=== PATIENT | female | born 1955 | race Caucasian/White ===

== ENCOUNTER 2023-02-17 16:20 | Outpatient (REF) | payer MEDICARE, BC, SELFPAY ==
--- NOTE | 2023-02-17 08:45 | SKI_PTH ---
PATIENT: Desirae Benson LOC: [facility] U#:[id number] AGE/SX: 67/F ROOM: RE02/17/[address]: LEENA Hand : 1955 BED: DIS: 02/17/2023 SPEC #: [id number] RECD: 02/17/23 17:01 STATUS: EVE MACKENZIE #: [id number] ERICK: 02/17/23 08:[address]: Eduin Cole DEPT: Surgical Specimen RECD BY: Petrona Cisneros ENTERED: 02/17/23 17:02 SP TYPE: BRAN MOCK DR: Vivian Zimmer MD Tissues: 1 - SKIN BIOPSY(SHAVE/PUNCH) Procedures: SKIN LEVEL 4 Comments: [id number]
== END 2023-02-17 16:21 | disposition home or self-care (01) ==
LOC: LBN 16:20
PROVIDERS: PCP Physician Assistant; Visit Provider Physician Assistant
DX: L82.0 Inflamed seborrheic keratosis (principal)
CPT/HCPCS: 88305

== ENCOUNTER 2024-09-19 11:55 | Inpatient (IN) | payer MEDICARE, BC, SELFPAY ==
[2024-09-19] VITALS (7 sets, daily range): BP systolic 127–176; BP diastolic 80–106; PULSE 65–88; RESP 16–20; TEMP 36.9–37.4; O2SAT 96–99
--- NOTE | 2024-09-19 12:30 | RT.EKG_ITS ---
APPROVED REPORT Exam: Resting ECG Reason for Exam: weakness Patient Location: E HR:74 bpm ECG Measurements Heart Rate 74 AXIS NE 202 P 62 QRSd 93 QRS 18 QT 406 T 48 QTc 452 Conclusion Sinus rhythm...normal P axis, V-rate 60- 99 No Occlusion PA
[2024-09-19 13:00] LABS: Glucose Negative (Negative)
[2024-09-19 13:05] LABS: Abs Immature Grans 0.01 10^3/uL (0.0-0.06); HCT 43.3 % (36.0-46.0); HGB 14.3 g/dL (11.2-15.7); Immature Grans % 0.1 %; MCH 30.2 pg (27.0-33.0); MCHC 33.0 % (32.0-36.0); MCV 91 fL (80-95); MPV 8.7 fL (8.0-11.0); Platelet Count 261 10^3/uL (130-400); RBC 4.74 10^6/uL (3.93-5.22); RDW 13.1 % (11.7-14.6); RDW-SD 44.0 fL; WBC 7.94 10^3/uL (4.4-10.8)
[2024-09-19 13:12] LABS: C & S Indicated? No; RBC 0-2 HPF (0-2); WBC Negative HPF (0-5)
--- NOTE | 2024-09-19 13:22 | W.ED.GENAD ---
Discharge Plan Discharge Details Chief Complaint: Abd Prob Primary Care Provider: Farida,Local ED Provider: Petrona Andrade Home Meds and New Rx's Prescriptions: No Action cetirizine [Zyrtec] 1 tab PO DAILY epinephrine 1 syrg IM ONCE PRN cholecalciferol (vitamin D3) 1 tab PO DAILY aspirin 81 mg tablet,delayed release (DR/EC) 81 mg PO DAILY Slow-Mag 71.5 mg tablet,delayed release (DR/EC) 71.5 mg PO DAILY zolpidem [Ambien CR] 6.25 mg tablet,ext release multiphase 6.25 mg PO QHS atorvastatin 40 mg tablet 50 mg PO DAILY losartan 50 mg tablet 100 mg PO DAILY gabapentin 300 mg capsule 300 mg PO DAILY HPI General Date/Time Provider Initiated Documentation: 09/19/24 12:03. HPI Narrative: The patient is a 69-year-old female with a history of migraine headaches and hypertension, presenting with lower back pain radiating into her groin for the past 3 days. She was evaluated at an outside hospital yesterday, where a CT renal scan was performed, revealing no acute abnormalities. Laboratory tests conducted at her workplace were within normal limits. She sought medical attention due to persistent nausea and pain, which she now describes as being more severe on the right side compared to the left. She reports feeling lightheaded but is unable to consume fluids. She is not experiencing any chest pain or shortness of breath. Related Data Home Medications ?Medication ?Instructions ?Recorded ?Confirmed atorvastatin 40 mg tablet 50 mg PO DAILY 09/14/22 09/19/24 losartan 50 mg tablet 100 mg PO DAILY 09/14/22 09/19/24 aspirin 81 mg tablet,delayed 81 mg PO DAILY 10/28/22 09/19/24 release cetirizine 1 tab PO DAILY 10/28/22 09/19/24 cholecalciferol (vitamin D3) 1 tab PO DAILY 10/28/22 09/19/24 epinephrine 1 syrg IM ONCE PRN 10/28/22 09/19/24 magnesium chloride 71.5 mg 71.5 mg PO DAILY 10/28/22 09/19/24 (magnesium chloride) tablet,delayed release (Slow-Mag) gabapentin 300 mg capsule 300 mg PO DAILY 11/03/23 09/19/24 zolpidem 6.25 mg tablet,extended 6.25 mg PO QHS 11/03/23 09/19/24 release,multiphase (Ambien CR) Allergies Allergy/AdvReac Type Severity Reaction Status Date / Time atorvastatin Allergy Unknown Verified 09/19/24 12:41 lisinopril Allergy Unknown Verified 09/19/24 12:41 tree nut Allergy Unknown Verified 09/19/24 12:41 General Stated Complaint: Abd Prob DIMA: 3 Exam Narrative Exam Narrative: General Appearance: Alert and oriented. Vital signs: Within normal limits. HEENT: Within normal limits. Respiratory: Within normal limits. Gastrointestinal: Tenderness in bilateral flanks, right and left lower quadrants. No rebound or guarding. Skin: Warm and dry, no rash. Neurological: Normal. Course Vital Signs Vital signs: Vital Signs Temperature 37.3 C 09/19/24 12:01 Pulse 88 09/19/24 12:01 Respiratory Rate 20 09/19/24 12:01 Blood Pressure 172/106 H 09/19/24 12:01 Pulse Oximetry 99 09/19/24 12:01 Temperature 37.3 C 09/19/24 12:36 Temperature Source Oral 09/19/24 12:36 Pulse 88 09/19/24 12:36 Respiratory Rate 20 09/19/24 12:36 Blood Pressure 172/106 H 09/19/24 12:36 Blood Pressure Position Sitting 09/19/24 12:36 Pulse Oximetry 99 09/19/24 12:36 Oxygen Delivery Method Room Air 09/19/24 12:36 Oxygen Flow Rate 0 09/19/24 12:36 Pain Level 7 09/19/24 12:36 Lab/Test Results Lab/Test Results: Laboratory Tests Range/Units 09/19/24 09/19/24 12:36 12:45 WBC (4.4-10.8) 10^3/uL 7.94 RBC (3.93-5.22) 10^6/uL 4.74 Hgb (11.2-15.7) g/dL 14.3 Hct (36.0-46.0) % 43.3 MCV (80-95) fL 91 MCH (27.0-33.0) pg 30.2 MCHC (32.0-36.0) % 33.0 RDW (11.7-14.6) % 13.1 Plt Count (130-400) 10^3/uL 261 MPV (8.0-11.0) fL 8.7 Immature Gran % % 0.1 Neutrophils % % 71.0 Lymphocytes % % 19.3 Monocytes % % 6.9 Eosinophils % % 1.9 Basophils % % 0.8 Nucleated RBC % (0.0-0.3) % 0.0 Absolute Neutrophils (1.2-6.7) 10^3/uL 5.64 Absolute Lymphocytes (1.2-3.4) 10^3/uL 1.53 Absolute Monocytes (0.1-0.8) 10^3/uL 0.55 Absolute Eosinophils (0.0-0.7) 10^3/uL 0.15 Absolute Basophils (0.0-0.2) 10^3/uL 0.06 Urine Color (Yellow) Yellow Urine Clarity (Clear) Clear Urine pH (5-8) 5.5 Ur Specific [place] (1.005-1.025) 1.025 Urine Protein (Neg-Trace) mg/dL Negative Urine Ketones (Negative) mg/dL >=160 H Urine Blood (Negative) Trace-intact H Urine Nitrite (Negative) Negative Urine Bilirubin (Negative) Negative Urine Urobilinogen (Up to 0.2) mg/dL 0.2 Ur Leukocyte Esterase (Negative) Negative Urine RBC (0-2) HPF 0-2 Urine WBC (0-5) HPF Negative Ur Epithelial Cells (Negative) HPF Rare Urine Crystals (Negative) HPF Negative Urine Bacteria (Negative) HPF Negative Urine Casts (Negative) LPF Negative Urine Mucus (Negative) Negative Ur Culture Indicated? No Urine Glucose (Negative) mg/dL Negative Medical Decision Making Urinalysis: Ketonuria consistent with dehydration, no acute abnormalities. Bilirubin slightly elevated at 1.9 increased from 1.4 on prior CMP from [facility] CT renal: No acute abnormalities. Did spend approximately 5 minutes reviewing patient's CTs from [facility] Initial Assessment: 69-year-old female with migraine, hypertension, presenting with lower back pain radiating to groin for 3 days, persistent nausea, worse pain on right side. Differential Diagnosis: - Dehydration: ketonuria consistent with dehydration. - Renal pathology: CT renal normal, ultrasound pending. - Gastrointestinal issues: no rebound or guarding. ED Course: - Received fluids, antiemetics, Tylenol. - Ultrasound abdomen and pelvis pending. - Ordered morphine for pain management. - Ultrasound right upper quadrant negative for acute abnormality patient remains nauseous with abdominal pain I think she benefit from overnight observation fluids. Case discussed with Dr. Montoya agreeable to admission at this time Final Assessment: Patient presented with lower back pain radiating to groin, persistent nausea, and worse pain on right side. Received fluids, antiemetics, Tylenol, and morphine for pain management. Ultrasound abdomen and pelvis pending. Clinical Impression: - Dehydration - Renal pathology - Gastrointestinal issues MDM Components Evaluation: - Number of Differential Diagnoses or Management Options: Dehydration, Renal pathology, Gastrointestinal issues. - Amount and Complexity of Data Reviewed: CT renal, urinalysis, ultrasound abdomen and pelvis pending. - Risk of Complication and Morbidity or Mortality: Moderate risk due to persistent nausea, dehydration, and pain management. PFSH All Active Problems (Updated 02/17/23 @ 10:10 by LEENA Hand) Abnormal skin growth (Acute) Nevus (Acute) Screening for malignant neoplasm of skin (Acute) Medical History (Updated 02/17/23 @ 10:10 by LEENA Hand) Tubular adenoma of colon Primary insomnia GREGORIA (obstructive sleep apnea) Hyperlipidemia Cervical dysplasia Essential hypertension Nut allergy Environmental allergies Diverticulosis of large intestine Osteoarthritis of both knees Anxiety disorder Surgical History (Updated 09/14/22 @ 15:26 by Nakia Demarco RN) Hx of hysterectomy History of laparoscopic appendectomy Hx of total knee replacement Hx of colonoscopy Family History (Updated 09/14/22 @ 15:29 by Nakia Demarco RN) Father COPD (chronic obstructive pulmonary disease) Hyperlipidemia Hypertension Mother Hyperlipidemia Hypertension Stroke Paternal Grandmother Colon cancer Sister Hyperlipidemia Hypertension Brother Hyperlipidemia Social History (Updated 09/14/22 @ 15:28 by Nakia Demarco RN) Smoking/Tobacco Use Status: Never Smoking risk assessment performed?: Yes Alcohol Intake: current Alcohol Intake frequency: 0-2 drinks per day Drug use: Never Substance use type: does not use Do you feel safe at home: Yes Do you feel safe in your relationship?: Yes
[2024-09-19] MEDS: Omnipaque 350 MG/ML 100 ML BTL IJ (13:28)
[2024-09-19] MEDS: Normal Saline - Diluent 50 ML VIAL IJ (13:28)
[2024-09-19 13:31] LABS: ALT 30 U/L (14-59); AST 21 U/L (15-37); Albumin 4.4 g/dL (3.4-5.0); Alkaline Phosphatase 63 U/L (46-116); Anion Gap 10.9 mmol/L (3-11); BUN 13 mg/dL (7-18); Bilirubin, Total 1.9 mg/dL (0.2-1.0); CO2 26.1 mmol/L (21.0-32.0); Calcium 9.6 mg/dL (8.5-10.1); Chloride 102 mmol/L (98-107); Estimated GFR 92.98 (mL/min/1.73m2); Glucose 83 mg/dL (74-106); Potassium 4.1 mmol/L (3.5-5.1); Sodium 139 mmol/L (136-145); Total Protein 7.6 g/dL (6.4-8.2)
[2024-09-19 13:33] LABS: Lipase 23 U/L (<78); Magnesium 2.1 mg/dL (1.8-2.4); Troponin I 7 ng/L (<or=51)
[2024-09-19] MEDS: Ondansetron 4 MG/2 ML VIAL IVP (13:43)
[2024-09-19] MEDS: ACETAMINOPHEN 1,000 MG/100 ML BAG 400 MG IVPB (13:43)
[2024-09-19] MEDS: Normal Saline 1,000 ML 1000 ML IV ×2 (13:44→15:26)
--- NOTE | 2024-09-19 13:45 | DI.CT_ITS ---
Exam(s) CT ABDOMEN PELVIS W EXAM: CT ABDOMEN PELVIS W CLINICAL HISTORY: vomiting, bilateral flank pain (R>L. TECHNIQUE: Imaging Protocol: Axial computed tomography images with coronal and sagittal reformatted images were created and reviewed CONTRAST MATERIAL: Intravenous: Omnipaque 350 Contrast volume:75 ml Oral: no COMPARISON: No exams were available for comparison FINDINGS: ABDOMEN and PELVIS: Lung Bases: No acute findings. Liver: Normal density. No suspicious mass. Gallbladder and biliary tract: No radiodense calculus. No wall thickening or pericholecystic fluid. No biliary dilation. Pancreas: Normal density. No abnormal calcifications or inflammatory process. No evidence of mass. Spleen: Normal. Kidneys: Normal size, contour and axis. No radiodense stones. No obstructive uropathy. No suspicious masses seen. Adrenal glands: No masses seen. Vasculature: Abdominal aorta non-dilated. Soft tissues: Unremarkable. Bladder: No gross wall thickening. No calculi.No focal mass. Bowel: Prominent diverticulosis. No obstruction. No bowel wall thickening. Appendix normal. Peritoneal cavity: No ascites. No focal collection. No mesenteric inflammatory response. No free air. Bones: Advanced degenerative changes in the spine. Reproductive organs: Partial hysterectomy. Lymph nodes: No pathologically enlarged lymph nodes. IMPRESSION:: No acute abnormality in the abdomen or pelvis. Prominent diverticulosis. No evidence of diverticulitis. RADIATION DOSE DELIVERED: 508.91mGy.cm Total DLP DATA REPOSITORY: All CT scans at this facility are submitted to the National Radiology Data Registry (NRDR) Dose Index Registry (DIR) with the [employer] (ACR). RADIATION OPTIMIZATION: All CT scans at this facility use at least one of these dose optimization techniques: automated exposure control; mA and/or kV adjustment per patient size (includes targeted exams where dose is matched to clinical indication); or iterative reconstruction.
[2024-09-19 14:16] LABS: Troponin I 7 ng/L (<or=51)
--- NOTE | 2024-09-19 14:30 | DI.US_ITS ---
Exam(s) US ABDOMEN LIMITED EXAM: US ABDOMEN LIMITED CLINICAL HISTORY: RUQ, pain elevated bili TECHNIQUE: Ultrasound abdomen performed using standard protocol. COMPARISON: CT CT ABDOMEN PELVIS W from 09/19/2024 FINDINGS: LIVER: Normal size. Normalechogenicity. No focal liver lesions are seen.. GALLBLADDER: No evidence of cholelithiasis. No evidence of wall thickening. No pericholecystic fluid identified. WILLAMS'S SIGN: Negative. BILIARY SYSTEM: No intrahepatic or extrahepatic biliary ductal dilation. RIGHT KIDNEY: Normal size. No evidence of renal calculi. No evidence of hydronephrosis. No suspicious renal mass. Tiny cyst identified. PANCREAS: Normal where visualized. ABDOMINAL AORTA AND IVC: Visualized portions normal caliber. ASCITES: None seen. IMPRESSION: Normal sonographic appearance of the right upper quadrant. DATA REPOSITORY:
[2024-09-19] MEDS: Ketorolac 15 MG/ML VIAL 7.5 MG IVP (14:41)
[2024-09-19] MEDS: Prochlorperazine 10 MG/2 ML VIAL IVP (14:42)
--- NOTE | 2024-09-19 15:44 | W.PM.HP.N ---
Date of service: 09/19/24 Time of Service: 15:59 Assessment and Plan Assessment and plan (1) GREGORIA (obstructive sleep apnea): Assessment and plan: Will inquire about home CPAP and will order (2) Hyperlipidemia: Assessment and plan: Continue outpatient management if atorvastatin does not represent a true allergy; patient seems to have been on atorvastatin at home (3) Essential hypertension: Assessment and plan: Continue outpatient medicine regimen does not seem to be in [facility] (4) Anxiety disorder: Assessment and plan: Continue outpatient regimen (5) Abdominal pain: Status: Acute Assessment and plan: Abdominal and pelvis CT as well as ultrasound were negative for any acute findings Give scheduled ketorola and as needed IV morphine not effective Right lower back pain around iliac crest radiating to right lower quadrant?exacerbated by palpation - The patient was on prednisone which was stopped lately for left hip bursitis but no as no history of RA - ESR CRP Finish that note Will continue to monitor Flexiril trial (6) Nausea & vomiting: Status: Acute Assessment and plan: Continue with as needed antiemetic meds Clear liquid diet (7) Ketonuria: Status: Acute Assessment and plan: Could have been due to dehydration and poor oral intake in the setting of nausea vomiting patient complains of lightheadedness without hypotension LR at 125-hour no history of CHF (8) Elevated bilirubin: Status: Acute Assessment and plan: Bilirubin at 1.9 with normal LFTs and negative lipase No previous blood work to compare Will continue to monitor (9) On deep vein thrombosis (DVT) prophylaxis: Status: Acute Assessment and plan: On low molecular weight heparin Discussed with Dr. Michaels to [facility] History of Present Illness History of Present Illness Chief Complaint: Lower back, nausea vomiting lightheadedness Narrative: This 69 years old female patient with past medical history of migraine headaches,hyperlipidemia, GREGORIA, hypertension, hysterectomy, appendectomy presented to the ED for evaluation of presenting with lower back pain radiating into her right groin> left groin for the past 3 days with ongoing lightheadedness, nausea and inability to consume oral fluid. Workup in the ED was most likely unremarkable and ACS negative except for total bilirubin at 1.9 and ketonuria consistent with dehydration versus poor nutritional intake likely contribute. CT of the abdomen and pelvis was unremarkable ultrasound of the right upper quadrant . In the ED the patient was treated with IV antiemetic IV fluid and IV morphine. The patient will be admitted to the medical surgical floor by the hospitalist team for uncontrolled pain, intractable nausea/vomiting. Full CODE STATUS confirmed. Patient denied fevers, chills, chest pain, dysuria or diarrhea. Patient reported pain starting on the left lower back radiating to the lower abdomen then complete migration of pain to the right side from her lower right back to her lower abdomen over the past 3 to 4 days, last bowel movement Monday, not passing flatus, nausea, vomiting. Review of Systems All systems reviewed & are unremarkable except as noted in HPI and below PFSH All Active Problems (Updated 09/19/24 @ 16:09 by Teresa Rodriguez APRN) On deep vein thrombosis (DVT) prophylaxis (Acute) Elevated bilirubin (Acute) Ketonuria (Acute) Nausea & vomiting (Acute) Abdominal pain (Acute) Abnormal skin growth (Acute) Nevus (Acute) Screening for malignant neoplasm of skin (Acute) Medical History (Updated 09/19/24 @ 16:09 by Teresa Rdoriguez APRN) Tubular adenoma of colon Primary insomnia GREGORIA (obstructive sleep apnea) Hyperlipidemia Cervical dysplasia Essential hypertension Nut allergy Environmental allergies Diverticulosis of large intestine Osteoarthritis of both knees Anxiety disorder Surgical History (Updated 09/14/22 @ 15:26 by Nakia Demarco RN) Hx of hysterectomy History of laparoscopic appendectomy Hx of total knee replacement Hx of colonoscopy Family History (Updated 09/14/22 @ 15:29 by Nakia Demarco RN) Father COPD (chronic obstructive pulmonary disease) Hyperlipidemia Hypertension Mother Hyperlipidemia Hypertension Stroke Paternal Grandmother Colon cancer Sister Hyperlipidemia Hypertension Brother Hyperlipidemia Social History (Updated 09/14/22 @ 15:28 by Nakia Demarco RN) Smoking/Tobacco Use Status: Never Smoking risk assessment performed?: Yes Alcohol Intake: current Alcohol Intake frequency: 0-2 drinks per day Drug use: Never Substance use type: does not use Do you feel safe at home: Yes Do you feel safe in your relationship?: Yes Meds Allergies and Home Medications Allergies Allergy/AdvReac Type Severity Reaction Status Date / Time atorvastatin Allergy Unknown Verified 09/19/24 12:41 lisinopril Allergy Unknown Verified 09/19/24 12:41 tree nut Allergy Unknown Verified 09/19/24 12:41 Home Medications ?Medication ?Instructions ?Recorded ?Confirmed ?Type atorvastatin 40 mg tablet 50 mg PO DAILY 09/14/22 09/19/24 History aspirin 81 mg tablet,delayed 81 mg PO DAILY 10/28/22 09/19/24 History release cetirizine 1 tab PO DAILY 10/28/22 09/19/24 History cholecalciferol (vitamin D3) 1 tab PO DAILY 10/28/22 09/19/24 History epinephrine 1 syrg IM ONCE PRN 10/28/22 09/19/24 History magnesium chloride 71.5 mg 71.5 mg PO DAILY 10/28/22 09/19/24 History (magnesium chloride) tablet,delayed release (Slow-Mag) gabapentin 300 mg capsule 300 mg PO DAILY 11/03/23 09/19/24 History zolpidem 6.25 mg tablet,extended 6.25 mg PO QHS 11/03/23 09/19/24 History release,multiphase (Ambien CR) atorvastatin 10 mg tablet 10 mg PO DAILY 09/19/24 09/19/24 History losartan 100 mg tablet 100 mg PO DAILY 09/19/24 09/19/24 History Exam Narrative Exam Narrative: Alert oriented x 3 no focal neurodeficit, clear lungs unlabored breathing, S1-S2 no murmur, abdomen is tender to right lower quadrant nondistended nonacute Negative CVA tenderness moves all 4 extremities, Results Labs 09/19/24 12:45 09/19/24 12:45 Labs: Laboratory Results - last 24 hr 09/19/24 09/19/24 09/19/24 12:36 12:45 13:44 WBC 7.94 RBC 4.74 Hgb 14.3 Hct 43.3 MCV 91 MCH 30.2 MCHC 33.0 RDW 13.1 Plt Count 261 MPV 8.7 Immature Gran % 0.1 Neutrophils % 71.0 Lymphocytes % 19.3 Monocytes % 6.9 Eosinophils % 1.9 Basophils % 0.8 Nucleated RBC % 0.0 Absolute Neutrophils 5.64 Absolute Lymphocytes 1.53 Absolute Monocytes 0.55 Absolute Eosinophils 0.15 Absolute Basophils 0.06 Sodium 139 Potassium 4.1 Chloride 102 Carbon Dioxide 26.1 Anion Gap 10.9 BUN 13 Creatinine 0.7 Est GFR (CKD-EPI 2020) 92.98 Glucose 83 Calcium 9.6 Magnesium 2.1 Total Bilirubin 1.9 H AST 21 ALT 30 Alkaline Phosphatase 63 Troponin I 7 7 Total Protein 7.6 Albumin 4.4 Lipase 23 Urine Color Yellow Urine Clarity Clear Urine pH 5.5 Ur Specific [place] 1.025 Urine Protein Negative Urine Ketones >=160 H Urine Blood Trace-intact H Urine Nitrite Negative Urine Bilirubin Negative Urine Urobilinogen 0.2 Ur Leukocyte Esterase Negative Urine RBC 0-2 Urine WBC Negative Ur Epithelial Cells Rare Urine Crystals Negative Urine Bacteria Negative Urine Casts Negative Urine Mucus Negative Ur Culture Indicated? No Urine Glucose Negative Last Vital Signs Temp 37.4 C 09/19/24 13:29 Pulse 65 09/19/24 13:29 Resp 20 09/19/24 12:36 BP 176/85 H 09/19/24 13:29 Pulse Ox 99 09/19/24 13:34 Time Spent Time spent with Patient: >75 minutes Time was spent: preparing to see the patient(eg.review tests), obtaining and/or reviewing separately otained hiistory, ordering medications,tests, procedures, referring, communicating with other health dog daycare provider, indepentently interpreting results, counseling the patient and care coordination
[2024-09-19] MEDS: MORPHine 4 MG/ML SYR IVP (15:52)
--- NOTE | 2024-09-19 16:45 | W.PC.ACHO ---
Registration Status: REG ER Primary Language: Preferred Language: ED Information & Data Chief Complaint Abd Prob 09/19/24 13:24 Triage Note Pt arrives to ED c/o LBP 09/19/24 12:01 which radiates into her abd x 3 days. Pt was seen yesterday in the ED at [facility] in [place]. Pt also endorses nausea. Vomiting on Monday but not since then. Negative CT at [facility]. Denies CP and SOB. Last BM x 2 days ago - normal per pt. Hx of appendectomy and total hysterectomy Medical / Surgical History (Last Updated 09/14/22 @ 15:26 by Nakia Demarco RN) Tubular adenoma of colon Primary insomnia GREGORIA (obstructive sleep apnea) Hyperlipidemia Cervical dysplasia Essential hypertension Nut allergy Environmental allergies Diverticulosis of large intestine Osteoarthritis of both knees Anxiety disorder (Last Updated 09/14/22 @ 15:26 by Nakia Demarco RN) Hx of hysterectomy History of laparoscopic appendectomy Hx of total knee replacement Hx of colonoscopy Most Recent Vital Signs Temperature 37.4 C 09/19/24 13:29 Temperature Source Oral 09/19/24 13:29 Pulse 86 09/19/24 16:17 Pulse Rhythm Regular 09/19/24 13:29 Respiratory Rate 16 09/19/24 16:17 Blood Pressure 127/84 09/19/24 16:17 Blood Pressure Mean 98 09/19/24 16:17 Blood Pressure Position Sitting 09/19/24 16:17 Pulse Oximetry 98 09/19/24 16:17 Oxygen Delivery Method Room Air 09/19/24 12:36 Oxygen Flow Rate 0 09/19/24 12:36 Pain Level 5 09/19/24 13:29 Allergies atorvastatin Allergy (Verified 09/19/24 12:41) Unknown lisinopril Allergy (Verified 09/19/24 12:41) Unknown tree nut Allergy (Verified 09/19/24 12:41) Unknown Precautions Isolation Standard precaution 09/19/24 12:11 IV IV Catheter Type [Right Saline Lock Antecubital] IV Catheter Gauge [Right 20 Antecubital] Diet Orders Category Date Time Status Heart Healthy Eating [DIET] Nutrition 09/19/24 Lunch Active Diagnostics 09/19/24 09/19/24 09/19/24 Range/Units 13:44 12:45 12:36 WBC 7.94 (4.4-10.8) 10^3/uL RBC 4.74 (3.93-5.22) 10^6/uL Hgb 14.3 (11.2-15.7) g/dL Hct 43.3 (36.0-46.0) % MCV 91 (80-95) fL MCH 30.2 (27.0-33.0) pg MCHC 33.0 (32.0-36.0) % RDW 13.1 (11.7-14.6) % Plt Count 261 (130-400) 10^3/uL MPV 8.7 (8.0-11.0) fL Immature Gran % 0.1 % Neutrophils % 71.0 % Lymphocytes % 19.3 % Monocytes % 6.9 % Eosinophils % 1.9 % Basophils % 0.8 % Nucleated RBC % 0.0 (0.0-0.3) % Absolute Neutrophils 5.64 (1.2-6.7) 10^3/uL Absolute Lymphocytes 1.53 (1.2-3.4) 10^3/uL Absolute Monocytes 0.55 (0.1-0.8) 10^3/uL Absolute Eosinophils 0.15 (0.0-0.7) 10^3/uL Absolute Basophils 0.06 (0.0-0.2) 10^3/uL Sodium 139 (136-145) mmol/L Potassium 4.1 (3.5-5.1) mmol/L Chloride 102 (98-107) mmol/L Carbon Dioxide 26.1 (21.0-32.0) mmol/L Anion Gap 10.9 (3-11) mmol/L BUN 13 (7-18) mg/dL Creatinine 0.7 (0.55-1.02) mg/dL Est GFR (CKD-EPI 2020) 92.98 (mL/min/1.73m2) Glucose 83 (74-106) mg/dL Calcium 9.6 (8.5-10.1) mg/dL Magnesium 2.1 (1.8-2.4) mg/dL Total Bilirubin 1.9 H (0.2-1.0) mg/dL AST 21 (15-37) U/L ALT 30 (14-59) U/L Alkaline Phosphatase 63 (46-116) U/L Troponin I 7 7 (<or=51) ng/L Total Protein 7.6 (6.4-8.2) g/dL Albumin 4.4 (3.4-5.0) g/dL Lipase 23 (<78) U/L Urine Color Yellow (Yellow) Urine Clarity Clear (Clear) Urine pH 5.5 (5-8) Ur Specific [place] 1.025 (1.005-1.025) Urine Protein Negative (Neg-Trace) mg/dL Urine Ketones >=160 H (Negative) mg/dL Urine Blood Trace-intact H (Negative) Urine Nitrite Negative (Negative) Urine Bilirubin Negative (Negative) Urine Urobilinogen 0.2 (Up to 0.2) mg/dL Ur Leukocyte Esterase Negative (Negative) Urine RBC 0-2 (0-2) HPF Urine WBC Negative (0-5) HPF Ur Epithelial Cells Rare (Negative) HPF Urine Crystals Negative (Negative) HPF Urine Bacteria Negative (Negative) HPF Urine Casts Negative (Negative) LPF Urine Mucus Negative (Negative) Ur Culture Indicated? No Urine Glucose Negative (Negative) mg/dL Intake and Output - 24 Hour Total 09/19/24 11:55 thru 09/19/24 15:26 Intake Total 1100 Balance 1100 Weight 77.564 kg Intake: IV 1100 Falls Risk Assessment History of Falls No History 09/19/24 12:36 Contributing Factors No Factors 09/19/24 12:36 Ambulatory Aids Independent 09/19/24 12:36 Tubes/Lines W/no contributing factors 09/19/24 12:36 Gait Evaluation No gait disturbance 09/19/24 12:36 Cognition No cognitive impairment 09/19/24 12:36 Fall Total Score 10 09/19/24 12:36 Level of Risk Standard/Low Risk 09/19/24 12:36 Problems (Last Updated 09/14/22 @ 15:26 by Nakia Demarco RN) On deep vein thrombosis (DVT) prophylaxis (Acute) Elevated bilirubin (Acute) Ketonuria (Acute) Nausea & vomiting (Acute) Abdominal pain (Acute) v v v v v v v v v Sending and/or Receiving Nurses: Please use comment section below to note any information pertinent to the patient hand-off not included above. Information / Comments: This nurse received report from ED patient arrived with nausea for three days, low back pain in the right side, transferred to [facility] for observation. Report received from: Concha SINGH ED
[2024-09-19] MEDS: Lactated Ringers 1,000 ML 125 ML IV (17:39)
[2024-09-19] MEDS: Pantoprazole 40 MG VIAL IVP (17:45)
--- NOTE | 2024-09-19 18:14 | RESPIRATORY ---
Spoke with patient about her GREGORIA diagnosis and she advised she has a home CPAP unit but does not use it (DME: [employer]). She said she recently had a f/u appt with the sleep clinic at [facility] and they advised her that since her GREGORIA is mild she could choose whether to wear the machine or not.
[2024-09-19] MEDS: Ketorolac 15 MG/ML VIAL IVP (19:48)
[2024-09-19] MEDS: Cyclobenzaprine 10 MG TAB PO (19:49)
--- NOTE | 2024-09-20 | DI.RAD_ITS ---
Exam(s) XR LUMBAR SPINE COMPLETE EXAM: XR LUMBAR SPINE COMPLETE CLINICAL HISTORY: lumbar pain. TECHNIQUE: 2D digital imaging was performed of the lumbar spine. Five images were obtained. AP, lateral, right oblique, left oblique and L5-S1 spot views were obtained. COMPARISON: No exams were available for comparison FINDINGS: BONES: No fracture or destructive lesion. There are endplate osteophytes at multiple levels of the lumbar spine. Syndesmophytes are present. There are degenerative changes of the facets throughout the lumbar spine. DISKS: There is disc space narrowing at all levels of the lumbar spine. Vacuum discs are seen from L3-4 through L5-S1. ALIGNMENT: There is a very mild right convex lumbar scoliosis. No spondylolysis or spondylolisthesis. SOFT TISSUE: Atherosclerotic calcification is present. IMPRESSION: 1. There is no acute fracture or subluxation. 2. Moderately severe degenerative changes are seen in the lumbar spine. DATA REPOSITORY: RADIATION DOSE DELIVERED:
--- NOTE | 2024-09-20 | DI.RAD_ITS ---
Exam(s) XR HIP RT COMPLETE AP PELVIS EXAM: XR HIP RT COMPLETE AP PELVIS CLINICAL HISTORY: pain. TECHNIQUE: 2D digital imaging was performed of the right hip. Two images were obtained. AP pelvis and lateral right hip views were obtained. COMPARISON: No exams were available for comparison FINDINGS: BONES: No acute fracture is present. No bony destructive lesion is seen. JOINTS: No dislocation present. There are mild degenerative changes seen in the hips. The sacroiliac joints and symphysis pubis are intact. SOFT TISSUE: Normal. IMPRESSION: No acute abnormalities identified. DATA REPOSITORY: RADIATION DOSE DELIVERED:
[2024-09-20] MEDS: MORPHine 10 MG/ML VIAL 2 MG IVP ×2 (00:19→08:29)
[2024-09-20] MEDS: Ketorolac 15 MG/ML VIAL IVP ×3 (01:52→13:13)
[2024-09-20] MEDS: Lactated Ringers 1,000 ML 125 ML IV ×2 (01:52→10:01)
[2024-09-20 06:32] LABS: ESR 5 mm/hr (0-30)
[2024-09-20 06:33] LABS: Abs Immature Grans 0.01 10^3/uL (0.0-0.06); HCT 36.7 % (36.0-46.0); HGB 12.1 g/dL (11.2-15.7); Immature Grans % 0.1 %; MCH 30.2 pg (27.0-33.0); MCHC 33.0 % (32.0-36.0); MCV 92 fL (80-95); MPV 9.2 fL (8.0-11.0); Platelet Count 214 10^3/uL (130-400); RBC 4.01 10^6/uL (3.93-5.22); RDW 13.3 % (11.7-14.6); RDW-SD 45.0 fL; WBC 7.27 10^3/uL (4.4-10.8)
[2024-09-20 07:14] LABS: ALT 21 U/L (14-59); AST 25 U/L (15-37); Albumin 3.3 g/dL (3.4-5.0); Alkaline Phosphatase 48 U/L (46-116); Anion Gap 12.7 mmol/L (3-11); BUN 9 mg/dL (7-18); Bilirubin, Total 1.3 mg/dL (0.2-1.0); CO2 21.3 mmol/L (21.0-32.0); Calcium 8.6 mg/dL (8.5-10.1); Chloride 106 mmol/L (98-107); Estimated GFR 100.84 (mL/min/1.73m2); Glucose 68 mg/dL (74-106); Potassium 3.7 mmol/L (3.5-5.1); Sodium 140 mmol/L (136-145); Total Protein 6.0 g/dL (6.4-8.2)
[2024-09-20 07:27] LABS: C-Reactive Protein < 0.50 mg/dL (<or=0.5)
[2024-09-20 07:29] VITALS: BP 174/81; PULSE 92; RESP 14; TEMP 35.8; O2SAT 99
[2024-09-20] MEDS: Pantoprazole 40 MG VIAL IVP (08:08)
[2024-09-20] MEDS: Aspirin E.C. 81 MG TABEC PO (08:33)
[2024-09-20] MEDS: Losartan 50 MG TAB 100 MG PO (08:33)
[2024-09-20] MEDS: Gabapentin 300 MG CAP PO (08:33)
--- NOTE | 2024-09-20 09:00 | PDOC.CMIN ---
Date of service: 09/20/24 Time of Service: 09:00 Care Management Initial Assmt Initial Assessment Reason for Hospitalization: back pain Functional Status/Living Situation Patient Presentation: Desirae was sitting up in bed when CM met with her. She had just worked with PT and stated that it really helped a lot. Desirae was admitted with nausea and vomiting as well as back pain. She stated that the medication for nausea has been effective and that her pain is much improved. She is hoping to be discharged later today. Desirae lives in a single family home in [place] with her Elan. They have 2 children; their son lives in [place], [place] and their daughter lives in [place]. 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 She is independnet at baseline and does not receive any community services. Town of Residence: [place] Resides with: Spouse ( Elan) Significant Other/Family: Local (daughter [facility], son in [place]) Employment Status: Retired Instrumental Activities of Daily Living (ADLs): Independent Medications Medication Management: No Issues/Barriers identified Physical Functioning/Mobility Assistive Device: none Advance Directives Advance Directives: Do you have an Advance Directive: AD On File at [facility]: N 09/19/24, 12:21 Date Asked 09/19/24 09/19/24, 12:21 AD Date Reviewed COLST On File at [facility] COLST Date Scanned Code Status Resuscitation Status Full Code Portal Pt does not currently have a portal and education provided: Yes Insurance Coverage/Financial Issues Insurance: Medicare BC/ Care Team Visit Care Team Role Provider Type Teresa Rodriguez APRN MD [facility] STAFF PHYSICIAN [facility] No Primary Care Provider NON-[facility] STAFF PHYSICIAN LEENA Agosto Emergency Provider [facility] [employer] Huseyin Montoya MD Admit Provider [facility] STAFF PHYSICIAN Attending Provider Discharge Potential Discharge Needs: PCP F/U Appt Anticipated Barriers to Discharge: None Identified Patient/Family Education Needs: Review discharge instructions, discuss Ask Me Three Transportation: Private vehicle Plan: Anticipate Desirae will be discharged home with no new services. She will follow up with her PCP and plan of care and transport with family. CM will follow and continue to support discharge planning. Social Determinants of Health Screening Social Determinants of health last assessed in clinic: 09/20/24 Will the Patient Participate in the Screening?: Yes Do you worry about having a steady place to live?: yes What is your living situation today?: I have housing today, but am worried about losing it Problems where you live: no known problems In the past 12 months, have you had to go without electric, gas, oil or water in your home?: no 1. Within the past 12 months, we worried whether our food would run out before we got money to buy more.: Never true 2. Within the past 12 months, the food we bought just didn't last and we didn't have money to get more.: Never true Has lack of transportation kept you from medical appointments or from doing things needed for daily living?: no Has anyone in your life made you feel unsafe or unsupported?: no How hard is it for you to pay for the very basics like food, housing, medical care, and heating? Would you say it is:: Not hard at all Do you want help finding or keeping work or a job?: I do not need or want help If for any reason you need help with day-to-day activities such as bathing, preparing meals, shopping, managing finances, etc., do you get the help you need?: I don?t need any help How often do you feel lonely or isolated from those around you?: Never Do you speak a language other than Bengali at home?: No Does the patient want assistance with any of the above?: No Health Related Social Needs Health related social needs: housing instability, housed, with risk of homelessness (Z59.811) Health related social needs details: no needs PFSH All Active Problems (Updated 09/19/24 @ 16:09 by Teresa Rodriguez APRN) On deep vein thrombosis (DVT) prophylaxis (Acute) Elevated bilirubin (Acute) Ketonuria (Acute) Nausea & vomiting (Acute) Abdominal pain (Acute) Abnormal skin growth (Acute) Nevus (Acute) Screening for malignant neoplasm of skin (Acute) Medical History (Updated 09/19/24 @ 16:09 by Teresa Rodriguez APRN) Tubular adenoma of colon Primary insomnia GREGORIA (obstructive sleep apnea) Hyperlipidemia Cervical dysplasia Essential hypertension Nut allergy Environmental allergies Diverticulosis of large intestine Osteoarthritis of both knees Anxiety disorder Surgical History (Updated 09/14/22 @ 15:26 by Nakia Demarco RN) Hx of hysterectomy History of laparoscopic appendectomy Hx of total knee replacement Hx of colonoscopy Family History (Updated 09/14/22 @ 15:29 by Nakia Demarco RN) Father COPD (chronic obstructive pulmonary disease) Hyperlipidemia Hypertension Mother Hyperlipidemia Hypertension Stroke Paternal Grandmother Colon cancer Sister Hyperlipidemia Hypertension Brother Hyperlipidemia Social History (Updated 09/14/22 @ 15:28 by Nakia Demarco RN) Smoking/Tobacco Use Status: Never Smoking risk assessment performed?: Yes Alcohol Intake: current Alcohol Intake frequency: 0-2 drinks per day Drug use: Never Substance use type: does not use Do you feel safe at home: Yes Do you feel safe in your relationship?: Yes
[2024-09-20] MEDS: Cyclobenzaprine 10 MG TAB PO ×2 (13:14→20:18)
[2024-09-20] MEDS: Magnesium Citrate 300 ML BTL 150 ML PO (13:14)
[2024-09-20] MEDS: Metoclopramide 10 MG/2 ML VIAL IVP (13:14)
[2024-09-20 13:29] VITALS: BP 179/82
--- NOTE | 2024-09-20 13:30 | IN_ITS ---
PT Notes Visit Reasons: Nausea, vomiting Physical Therapy Inpatient Initial Evaluation Date: 09/20/2024 Referring Doctor: Teresa Rodriguez NP PT Orders: PT CONSULT: Safety Consult for D/C. Eval for Assistive Device Precautions: Fall. Standard. Activity as tolerated. Patient Profile/Admitting Diagnosis: Desirae is a 69 year-old female admitted for assessment of abdominal pain, low back pain, lightheadedness, nausea, and vomiting. Renal CT [facility] at [facility] did not show any acute abnormality. Testing here also did not show any abnormality of the R UAQ and the abdomen and pelvis. Low back pain preceded the weed wacking activity that worsened symptoms on Monday. 09/20/2024 Abdominal US Impression: Normal sonographic appearance of the right upper quadrant. 09/20/[address] Impiression: No acute abnormality in the abdomen or pelvis. Prominent diverticulosis. No evidence of diverticulitis. PMHX: All Active Problems (Updated 09/19/24 @ 16:09 by Teresa Rodriguez APRN) On deep vein thrombosis (DVT) prophylaxis (Acute) Elevated bilirubin (Acute) Ketonuria (Acute) Nausea & vomiting (Acute) Abdominal pain (Acute) Abnormal skin growth (Acute) Nevus (Acute) Screening for malignant neoplasm of skin (Acute) Medical History (Updated 09/19/24 @ 16:09 by Teresa Rodriguez APRN) Tubular adenoma of colon Primary insomnia GREGORIA (obstructive sleep apnea) Hyperlipidemia Cervical dysplasia Essential hypertension Nut allergy Environmental allergies Diverticulosis of large intestine Osteoarthritis of both knees Anxiety disorder Surgical History (Updated 09/14/22 @ 15:26 by Nakia Demarco RN) Hx of hysterectomy History of laparoscopic appendectomy Hx of total knee replacement Hx of colonoscopy Social History/Home Situation: Lives with in a private home without steps to enter. Equipment Owned/DME: Back brace Subjective: On Monday, and patient stated that her back was starting to act out. She weed wacked Monday morning for 15 minutes each time for a total of over 4 hours using a 16-17 lb (according to ) weed stevenson. Patient stated that she made sure she wore her back brace while weed wacking as her back was giving her a problem already. said that he told her not to worry about the weeds but she wanted the chore done and so she did. A new wave of pain from both the low back side was radiating to both the lower abdomen area and the groin area that got worse later in the day Monday which prompted patient and to go to [facility] on Monday where renal CT scan was done but did not show any acute abnormality. Vomiting started Monday night. She added that she has not been hydrating well these past few days, Objective: General Observation: Pleasant female resting in bed and talking with ed PT came in. IV through R UE. Mental Status: Alert and oriented as to person, place, time, and purpose. Able to pay attention, focus, and respond appropriately. Pain: Minimal pain now localized along the R lumbar parapsinals, very little reported through the groin areas on B sides ROM: Right Upper Extremity: Shoulder Flexion WFL. Shoulder abduction WFL. Elbow flexion WFL. Wrist flexion WFL. Functional opening and closing of hand WFL. Left Upper Extremity: Shoulder Flexion WFL. Shoulder abduction WFL. Elbow flexion WFL. Wrist flexion WFL. Functional opening and closing of hand WFL. Right Lower Extremity: Hip flexion WFL. Hip abduction WFL. Knee flexion WFL. Ankle dorsiflexion WFL. Ankle plantarflexion WFL. Left Lower Extremity: Hip flexion WFL. Hip abduction WFL. Knee flexion WFL. Ankle dorsiflexion WFL. Ankle plantarflexion WFL. Strength: Right Upper Extremity: Shoulder flexors 4/5. Shoulder abductors 4/5. Elbow flexors 5/5. Elbow extensors 5/5. Equipment Operation Instructor strong. Left Upper Extremity: Shoulder flexors 4/5. Shoulder abductors 4/5. Elbow flexors 5/5. Elbow extensors 5/5. Equipment Operation Instructor strong. Right Lower Extremity: Hip flexors 4/5. Hip abductors 4/5. Knee flexors 5/5. Knee extensors 5/5. Ankle dorsiflexors 5/5. Ankle plantarflexors 5/5. Left Lower Extremity: Hip flexors 4/5. Hip abductors 4/5. Knee flexors 5/5. Knee extensors 5/5. Ankle dorsiflexors 5/5. Ankle plantarflexors 5/5. Bed Mobility/Transfers: Rolling independent Supine to sit independent Sit to supine independent Sit to stand independent Stand to sit independent Bed to reclining chair independent Reclining chair to bed independent Gait: 600 feet without an assistive device. No gait abnormality noted. No path deviation. No loss of balance. Verbalized that she could feel some aching in the R lower back area. Balance: Static Sitting: Normal Dynamic Sitting: Caitlyn Static Standing: Normal Dynamic Standing: Good Special Tests: Mobility Limitations Standardized Measure [facility] AM-PAC 6 clicks Basic Mobility Inpatient Short Form: Raw Score: 24 CMS Score: 0% deficit Informed Consent/Education: Patient was instructed in purpose of PT consult and plan of care. Agreeable to proceed with established PT POC to achieve personal goals. MANUAL THERAPY: STM to R lumbar paraspinals x 5 minutes with good response. THERCarmela EX: Provided guidance and training in safe and correct performance of HEP as follows: Access Code: [email or web address] URL: [email or web address] Date: 09/20/2024 Prepared by: Nicki Yusuf Exercises - Supine Posterior Pelvic Tilt with Knee Rocks - 1 x daily - 7 x weekly - 1 sets - 10 reps - 5 hold - Supine Posterior Pelvic Tilt - 1 x daily - 7 x weekly - 1 sets - 10 reps - 5 hold - Alternating supine single knee to chest - 1 x daily - 7 x weekly - 1 sets - 10 reps - 5 hold - Supine Bridge - 1 x daily - 7 x weekly - 1 sets - 10 reps - 5 hold - Supine Quadricep Sets - 1 x daily - 7 x weekly - 1 sets - 10 reps - 5 hold - Supine Gluteal Sets - 1 x daily - 7 x weekly - 1 sets - 10 reps - 5 hold - ARY/Figure 4 exercises with gentle active push down of knee - 1 x daily - 7 x weekly - 1 sets - 10 reps - 5 hold Assessment: Tight R lumbar paraspinals and bilateral piriformis alonw with L trochanteric bursitis recurrence aggravated by lifting 16-lb weed stevenson 4 days ago complicated by dehydration, and ketonuria, increased bilirubin. Patient was able to tolerate up to 600 feet of level surface ambulation without an assistive device with report of increased R lower lumbar area guarding/stiffness. Patient was provided with STM to sprained R lumbar pararspinals longissimus thoracis and iliocostalis lumborum with patient in L side lying. Patient was then trained with supine level HEP to further minimize symptoms. Patient presents with clinical signs and symptoms consistent with current/admitting diagnoses that have resulted to mobility limitations, gait instability, generalized weakness, and overall ADL decline as demonstrated by the following impairment level findings: 1. Decreased strength to R lumbar paraspinals 2. Impaired activity tolerance 3. Sprain to R lumbar paraspinals Impairments are contributing to the following functional limitations: 1. Increased completion time for mobility ADL performance 2. Increased risk for falls 3. Impaired ability to participate in instrumental ADLs: gardening Patient is assessed as a 27595 low complexity based on the following: History: 69-year-old female with past medical history as indicated above Examination: As above Presentation: Stable Decision Makin low complexity Goals: Goals X1 week 1. Independent gait on level surface without AD for 1000 feet without report of pain 2. Independent with home exercise program 3. Normal static and dynamic standing balance/tolerance Plan of Care/Treatment Plan: 1x/day, 7 days/week x 1 week. Plan of care has been reviewed with the [facility] providing the service under Physical Therapy direction. Initiate Physical Therapy intervention for pain management as needed, strengthening, bed mobility, transfers, gait, stairs, balance training, and use of assistive device. DISCHARGE RECOMMENDATIONS: OP PT for continued back rehab TREATMENT CODE/TIME: 54531 x 20 minutes for unit, 77762 x 15 minutes for 1 unit, 61795 x 10 minutes for 1 unit (13:30-14:15). Thank you for the opportunity to participate in the care of this patient. Nicki Yusuf PT, DPT, CLT [facility] [place], [place]
[2024-09-20] MEDS: Ibuprofen 400 MG TAB PO (16:38)
--- NOTE | 2024-09-20 17:30 | W.PM.PROGNOT ---
Date of Service Date of service: 09/20/24 Time of Service: 11:00 Assessment and Plan Assessment and plan (1) GREGORIA (obstructive sleep apnea): Assessment and plan: Will inquire about home CPAP and will order (2) Hyperlipidemia: Assessment and plan: Continue outpatient management if atorvastatin does not represent a true allergy; patient seems to have been on atorvastatin at home (3) Essential hypertension: Assessment and plan: Continue outpatient medicine regimen does not seem to be in ELIZABETH but adjust as needed NSAID as needed now due to SBP 150-170 might also be due to pain (4) Anxiety disorder: Assessment and plan: Continue outpatient regimen (5) Abdominal pain: Status: Acute Assessment and plan: Abdominal and pelvis CT as well as ultrasound were negative for any acute findings but advanced degenerative spine changes seen Scheduled ketorolac transition to as needed oral NSAIDs and as needed morphine?will favor the administration of oral medicine first for anticipated discharge on oral pain meds Right lower back pain around iliac crest radiating to right lower quadrant?exacerbated by palpation - The patient was on prednisone which was stopped lately for left hip bursitis but no as no history of RA - ESR CRP Finish that note Will continue to monitor Flexiril trial ongoing?as patient might have overexerted herself: Please review physical therapy notes PT recommendation for outpatient PT for continued back rehab Pain appears to be from groin and lumbar region? 2 inc. paraspinal right that has migrated from initially left-sided pain Lumbar spine and pelvic x-ray in the setting of reported bursitis treated with Oral prednisone taper recently (6) Nausea & vomiting: Status: Acute Assessment and plan: Continue with as needed antiemetic meds Clear liquid diet advance as tolerated (7) Ketonuria: Status: Acute Assessment and plan: Could have been due to dehydration and poor oral intake in the setting of nausea vomiting patient complains of lightheadedness without hypotension LR at 125-hour discontinued as patient is able to tolerate oral fluid (8) Elevated bilirubin: Status: Acute Assessment and plan: Improving bilirubin with normal LFTs and negative lipase No previous blood work to compare on arrival but records from [facility] obtain bilirubin was 1.4 on 09/18 Will continue to monitor (9) Constipation: Status: Acute Assessment and plan: no bowel movement since Monday?positive stool burden as per CT mag citrate x 1 given effective Colace scheduled (10) On deep vein thrombosis (DVT) prophylaxis: Status: Acute Assessment and plan: On Lovenox Discussed with Dr. Montoya Subjective Subjective Patient reports: pain is less, tolerating liquids well, tolerating a regular diet, voiding w/o difficulty, no flatus, no bowel movement and nausea; denies vomiting, shortness of breath or fever Exam Narrative Exam Narrative: Alert oriented x 3 no focal neurodeficit, clear lungs unlabored breathing, S1-S2 no murmur, abdomen is tender to right lower quadrant at the groin abdomen is non-distended nonacute Negative CVA tenderness but back pain localized to l2- L3 2 inches distal right spine- tender to palpation and mobilization- no saddle anesthesia moves all 4 extremities, Objective Last Vital Signs Temp 35.8 C L 09/20/24 07:29 Pulse 92 H 09/20/24 07:29 Resp 14 09/20/24 07:29 BP 179/82 H 09/20/24 13:29 Pulse Ox 99 09/20/24 07:29 Laboratory Results - last 24 hr 09/20/24 06:23 WBC 7.27 RBC 4.01 Hgb 12.1 D Hct 36.7 MCV 92 MCH 30.2 MCHC 33.0 RDW 13.3 Plt Count 214 MPV 9.2 Immature Gran % 0.1 Neutrophils % 60.1 Lymphocytes % 25.2 Monocytes % 10.7 Eosinophils % 3.2 Basophils % 0.7 Nucleated RBC % 0.0 Absolute Neutrophils 4.37 Absolute Lymphocytes 1.83 Absolute Monocytes 0.78 Absolute Eosinophils 0.23 Absolute Basophils 0.05 ESR 5 Sodium 140 Potassium 3.7 Chloride 106 Carbon Dioxide 21.3 Anion Gap 12.7 H BUN 9 Creatinine 0.5 L Est GFR (CKD-EPI 2020) 100.84 Glucose 68 L Calcium 8.6 Total Bilirubin 1.3 H AST 25 ALT 21 Alkaline Phosphatase 48 C-Reactive Protein < 0.50 Total Protein 6.0 L Albumin 3.3 L PAWSS Have you Been Recently Intoxicated or Drunk Within the Last 30 days?: No Have you Ever Experienced Previous Episodes of Alcohol Withdrawal?: No Have you ever Experienced Withdrawal Seizures?: No Have you ever Experienced Delirium Tremens(DT)s?: No Have you ever undergone Alcohol Rehabilitation Treatment (i.e, inpt ot outpatient treatment programs)?: No Have you ever Experienced Blackouts?: No Have you ever Combined Alcohol with other Downers within the last 90 days?: No Have you ever Combined Alcohol with any other Substance of Abuse during the last 90 days?: No Positive Blood Alcohol level on Presentation? [PCS.BAL]: No Evidence of Increased Autonomic Activity (i.e. HR>120, tremor, sweating, agitation, nausea)?: No Result: 0 Time Spent with Patient Time Spent with Patient: >50 minutes Time was spent: preparing to see the patient(eg.review tests), obtaining and/or reviewing separately otained hiistory, ordering medications,tests, procedures, referring, communicating with other health nurse behavioral health care, indepentently interpreting results, counseling the patient and care coordination
[2024-09-20 17:35] LABS: Lab Add On Test DONE
[2024-09-20 17:55] LABS: Hemoglobin A1C 5.5 % (<5.7)
[2024-09-20 19:33] VITALS: BP 185/89; PULSE 69; RESP 15; TEMP 36.3; O2SAT 96
[2024-09-20 20:01] LABS: Cannabinoids THC Negative (Negative); METHADONE URINE SCREEN Negative (Negative)
[2024-09-20] MEDS: Acetaminophen 325 MG TAB 1000 MG PO (20:21)
[2024-09-21] MEDS: Ibuprofen 400 MG TAB PO (05:32)
[2024-09-21 06:28] LABS: Abs Immature Grans 0.02 10^3/uL (0.0-0.06); HCT 38.1 % (36.0-46.0); HGB 12.4 g/dL (11.2-15.7); Immature Grans % 0.4 %; MCH 29.3 pg (27.0-33.0); MCHC 32.5 % (32.0-36.0); MCV 90 fL (80-95); MPV 8.9 fL (8.0-11.0); Platelet Count 237 10^3/uL (130-400); RBC 4.23 10^6/uL (3.93-5.22); RDW 13.2 % (11.7-14.6); RDW-SD 43.5 fL; WBC 5.69 10^3/uL (4.4-10.8)
[2024-09-21 06:44] LABS: ALT 29 U/L (14-59); AST 23 U/L (15-37); Albumin 3.7 g/dL (3.4-5.0); Alkaline Phosphatase 53 U/L (46-116); Anion Gap 7.3 mmol/L (3-11); BUN 6 mg/dL (7-18); Bilirubin, Total 1.1 mg/dL (0.2-1.0); CO2 27.7 mmol/L (21.0-32.0); Calcium 9.0 mg/dL (8.5-10.1); Chloride 106 mmol/L (98-107); Estimated GFR 96.50 (mL/min/1.73m2); Glucose 105 mg/dL (74-106); Potassium 3.4 mmol/L (3.5-5.1); Sodium 141 mmol/L (136-145); Total Protein 6.6 g/dL (6.4-8.2)
[2024-09-21 07:29] VITALS: BP 187/87; PULSE 72; RESP 16; TEMP 36.1; O2SAT 98
[2024-09-21] MEDS: Acetaminophen 325 MG TAB 1000 MG PO ×2 (07:55→13:56)
[2024-09-21] MEDS: Magnesium Chloride 64 MG TABCR PO (07:56)
[2024-09-21] MEDS: Aspirin E.C. 81 MG TABEC PO (07:56)
[2024-09-21] MEDS: Losartan 50 MG TAB 100 MG PO (07:56)
[2024-09-21] MEDS: Docusate Sodium 100 MG CAP PO (07:56)
[2024-09-21] MEDS: Cetirizine 10 MG TAB PO (07:57)
[2024-09-21] MEDS: Cyclobenzaprine 10 MG TAB PO ×2 (07:57→13:56)
[2024-09-21] MEDS: Gabapentin 300 MG CAP PO (07:57)
[2024-09-21] MEDS: Atorvastatin 40 MG TAB PO (07:57)
[2024-09-21] MEDS: Pantoprazole 40 MG VIAL IVP (07:58)
--- NOTE | 2024-09-21 10:43 | PT.INTREAT ---
PT Notes Visit Reasons: Nausea, vomiting Inpatient Physical Therapy Treatment Note [facility] Date: 09/21/24 PRECAUTIONS: standard SUBJECTIVE: Desirae states that she is feeling much better today. She continues to have achy sensation in right groin. Denies numbness or tingling. OBJECTIVE: ? ? OBSERVATION: Resting in bed at initiation of session. No lines. No protective positioning or pain behaviors. ? PAIN: 2/10 ? BED MOBILITY/TRANSFERS? Rolling L/R: Independent Supine-sit: Independent? Sit-supine: Independent ? Sit-stand: Independent? Stand-sit: Independent ? Bed-Chair: Independent ? Chair-bed: Independent ? GAIT? Assistive Device: none? Weight bearing: full Assist: Independent ? Distance:? 300' ? Deviation: Non-antalgic, non-ataxic. ?Flexion/extension bias: relief in standing extension, which allows full ROM Hip ROM full and painfree SLR allows 70* without radicular symptoms ? Palpation: TTP at right iliopsoas (tightness noted on left side as well, but no specific tenderness here). ? Therapeutic Exercises ([id number]): Direct one-on-one instruction in therapeutic exercises to develop strength, endurance, range of motion and flexibility.? Provided skilled instruction in proper exercise performance Provided skilled manual cues to facilitate proper muscle recruitment and/or form Reviewed and modified exercise program, with addition of prone centralization techniques and hip flexor stretching. Applied TrP release to right iliopsoas prior to ambulation, with good pain relief. Introduced prone press ups, also allowing for pain reduction Access Code: [email or web address] URL: [email or web address] Date: 09/21/2024 Prepared by: Gayathri Calix Exercises - Supine Posterior Pelvic Tilt with Knee Rocks - 1 x daily - 7 x weekly - 1 sets - 10 reps - 5 hold - Supine Posterior Pelvic Tilt - 1 x daily - 7 x weekly - 1 sets - 10 reps - 5 hold - Supine Bridge - 1 x daily - 7 x weekly - 1 sets - 10 reps - 5 hold - Supine Gluteal Sets - 1 x daily - 7 x weekly - 1 sets - 10 reps - 5 hold - Static Prone on Elbows - 3 x daily - 7 x weekly - 1 sets - 10 reps - 5 second hold - Standing Hip Flexor Stretch - 3 x daily - 7 x weekly - 1 sets - 3 reps - 20 seconds hold ASSESSMENT:? Significantly improved comfort. Responding well to introduction of prone centralization techniques and manual efforts to Independent with mobility. Appropriate for d/c from PT in acute care setting, with recommendation for outpatient PT upon return to community. PLAN: D/C from PT in acute care setting. TREATMENT CODE/TIME: 0018-9551 ([id number]) DISCHARGE RECOMMENDATION: Home with outpatient PT. Patient requests referrals be sent to both [facility] and [facility].
--- NOTE | 2024-09-21 11:42 | W.PM.DS.N ---
Date of service: 09/21/24 Time of Service: 11:42 DS: Diagnosis Discharge Diagnosis (1) Intractable low back pain: Status: Acute Asessment and Plan: improved and responding most to NSAIDS and flexeril. (2) Nausea & vomiting: Status: Acute Asessment and Plan: Secondary to intractable pain improved with pain management and antiemetics (3) Essential hypertension: Asessment and Plan: Suspect blood pressure is elevated in the setting of intractable pain Instructed to check blood pressures 3 times weekly in the morning and bring log to PCP as office for follow-up appointment recommendations Discharge Plan Disposition Patient Disposition: Home Condition: Improving Discharge Details Reason For Visit: Nausea, vomiting Admit Date/Time: 09/19/24 15:58 Admit Provider: Huseyin Montoya Attending Provider: Huseyin Montoya [facility] Hospital Course: This is a 69-year-old female patient no significant past medical history who reported onset of bilateral low back pain that started on Monday. She denies any previous similar history. She denies any trauma or specific event that caused trauma to the area. She states her pain was so severe and not responsive to [id number] pain medications so she presented to the emergency department at [facility] for evaluation. She did undergo imaging that included renal CAT scan of her abdomen and pelvis that showed no acute pathology to explain her symptoms. She was reportedly given Toradol and discharged to home. She returns here to our emergency department for reevaluation as the pain has continued and is so severe that she has been experiencing intractable nausea and vomiting. She received IV fluids antiemetics and morphine for pain management. She did undergo an ultrasound of her right upper quadrant for the nausea. Overnight her back pain improved and her nausea and vomiting resolved. She felt the most pain relief from the Toradol and Flexeril. Is being discharged to home on Celebrex 100 mg twice daily Flexeril, lidocaine patch, and promethazine if needed for nausea and vomiting. Her blood pressure was also noted to be elevated while hospitalized, this was thought to be secondary to her intractable back pain. She was advised to continue monitoring her blood pressure and bring record to her PCPs appointment for further recommendations and medication adjustments. She should follow-up with her primary care provider or return to the emergency department for new or worsening symptoms Discharge discussed with Dr. Choudhary Home Meds and New Rx's Prescriptions: New cyclobenzaprine 10 mg Tablet 10 mg PO TID Qty: 30 0RF celecoxib [Celebrex] 100 mg capsule 100 mg PO BID Qty: 60 0RF promethazine 25 mg Tablet 25 mg PO Q6H PRN PRNQty: 10 0RF lidocaine 5 % adhesive patch,medicated 2 patch topical DAILY Qty: 15 0RF Rx Instructions: leave on most painful area for up to 12 hrs Continued cetirizine [Zyrtec] 1 tab PO DAILY epinephrine 1 syrg IM ONCE PRN cholecalciferol (vitamin D3) 1 tab PO DAILY aspirin 81 mg tablet,delayed release (DR/EC) 81 mg PO DAILY Slow-Mag 71.5 mg tablet,delayed release (DR/EC) 71.5 mg PO DAILY zolpidem [Ambien CR] 6.25 mg tablet,ext release multiphase 6.25 mg PO QHS gabapentin 300 mg capsule 300 mg PO DAILY losartan 100 mg tablet 100 mg PO DAILY Patient Comments: TAKE ONE TABLET BY MOUTH EVERY DAY atorvastatin 10 mg tablet 10 mg PO DAILY Patient Comments: TAKE ONE TABLET BY MOUTH EVERY DAY Discontinued atorvastatin 40 mg tablet 50 mg PO DAILY Discharge Instructions Instructions: Low Back Pain (DC), Back Exercises Additional Instructions: continue medication as directed follow up with pcp for further evaluation check blood pressure 3 times weekly and record to bring to follow up for review Stand Alone Forms: Nursing Discharge Form Referrals: No,Local [Primary Care Provider, Unknown] Vivian Urena PA [ [facility] STAFF PHYSICIAN, Medicine] Referral Note: I called your PCP and left a voicemail asking them to call you to schedule a follow up appointment. Activity:: Activity as Tolerated Equipment/Supplies:: No Equipment Needed Diet:: As Tolerated Discharge Orders Discharge Orders: Discharge Order (Routine); Ordered 09/21/24 Ordered By: Lisa Bar Discharge Data Discharge Date/Time-TO BE ENTERED AT DEPARTURE: 09/21/24 14:33 DS: Summary Time Spent with Patient providing and/or coordinating discharge services: Less than 30 minutes Status at Discharge Functional status at discharge: independent ambulation Overall status at discharge: patient is progressing back to baseline Mental Status: mental status grossly normal Speech and Movement: speech and movement normal Mood: congruent mood Affect: normal affect Quality:SDOH Health Related Social Needs: Health related social needs risk of homeless Health related social needs details no needs Health related social needs details: no needs Exam Narrative Exam Narrative: Well-appearing female of stated age in no acute distress head is atraumatic eyes nonicteric noninjected oral mucosas moist neck is supple full range of motion cardiovascular regular rate and rhythm respirations are even and unlabored back normal evaluation with normal lordosis no tenderness upon palpation of her lumbar or thoracic spine. She has full range of motion to all of her extremities bilateral lower extremities equal 5 out of 5 with no swelling. Sensation intact cap refill normal strong pulses. Gait is steady Psych Mental Status: mental status grossly normal Speech and Movement: speech and movement normal Mood: congruent mood Affect: normal affect DS: Data Vitals/I&O Vitals and I&O: Vital Signs Temperature 36.1 C L 09/21/24 07:29 Temperature Source Temporal Artery Scan 09/21/24 07:29 Pulse 72 09/21/24 07:29 Pulse Rhythm Regular 09/19/24 13:29 Respiratory Rate 16 09/21/24 07:29 Respiratory Effort Normal 09/19/24 17:03 Respiratory Depth Normal 09/19/24 17:03 Respiratory Pattern Normal 09/19/24 17:03 Blood Pressure 187/87 H 09/21/24 07:29 Blood Pressure Mean 120 09/21/24 07:29 Blood Pressure Position Sitting 09/19/24 16:17 Pulse Oximetry 98 09/21/24 07:29 Oxygen Delivery Method Room Air 09/21/24 07:29 Oxygen Flow Rate 0 09/21/24 07:29 Pain Level 7 09/20/24 08:29 Intake & Output 09/20/24 09/20/24 09/21/24 11:59 23:59 11:59 Intake Total 2000 / 3000.000 1000.000 / 3000.000 Output Total 900 / 900 1500 / 1500 Balance 1100 / 2100.000 1000.000 / 2100.000 -1500 / -1500 Intake: IV 2000 / 3000.000 1000.000 / 3000.000 Output: Urine 900 / 900 1500 / 1500 Other: Urine Color Yellow Yellow Urine Appearance Clear Urine Odor Normal Normal Data Completed and Pending Labs on day of discharge: Labs from last 24 hours 09/21/24 09/20/24 09/20/24 06:04 19:35 06:23 WBC 5.69 RBC 4.23 Hgb 12.4 Hct 38.1 MCV 90 MCH 29.3 MCHC 32.5 RDW 13.2 Plt Count 237 MPV 8.9 Immature Gran % 0.4 Neutrophils % 57.4 Lymphocytes % 23.9 Monocytes % 11.8 Eosinophils % 5.4 Basophils % 1.1 Nucleated RBC % 0.0 Absolute Neutrophils 3.27 Absolute Lymphocytes 1.36 Absolute Monocytes 0.67 Absolute Eosinophils 0.31 Absolute Basophils 0.06 Sodium 141 Potassium 3.4 L Chloride 106 Carbon Dioxide 27.7 Anion Gap 7.3 BUN 6 L Creatinine 0.6 Est GFR (CKD-EPI 2020) 96.50 Glucose 105 Hemoglobin A1c 5.5 Calcium 9.0 Total Bilirubin 1.1 H AST 23 ALT 29 Alkaline Phosphatase 53 Total Protein 6.6 Albumin 3.7 Urine Opiates Screen Positive A Urine Methadone Screen Negative Ur Barbiturates Screen Negative Ur Tricyclics Screen Negative Ur Amphetamines Screen Negative U Benzodiazepines Scrn Negative Urine Cocaine Screen Negative Ur THC Screen Negative Add-On Test Request DONE 09/20/24 06:23 WBC RBC Hgb Hct MCV MCH MCHC RDW Plt Count MPV Immature Gran % Neutrophils % Lymphocytes % Monocytes % Eosinophils % Basophils % Nucleated RBC % Absolute Neutrophils Absolute Lymphocytes Absolute Monocytes Absolute Eosinophils Absolute Basophils Sodium Potassium Chloride Carbon Dioxide Anion Gap BUN Creatinine Est GFR (CKD-EPI 2020) Glucose Hemoglobin A1c Cancelled Calcium Total Bilirubin AST ALT Alkaline Phosphatase Total Protein Albumin Urine Opiates Screen Urine Methadone Screen Ur Barbiturates Screen Ur Tricyclics Screen Ur Amphetamines Screen U Benzodiazepines Scrn Urine Cocaine Screen Ur THC Screen Add-On Test Request PFSH All Active Problems (Updated 09/21/24 @ 13:54 by Lisa Bar NP) Intractable low back pain (Acute) Constipation (Acute) On deep vein thrombosis (DVT) prophylaxis (Acute) Elevated bilirubin (Acute) Ketonuria (Acute) Nausea & vomiting (Acute) Abdominal pain (Acute) Abnormal skin growth (Acute) Nevus (Acute) Screening for malignant neoplasm of skin (Acute) Medical History (Updated 09/21/24 @ 13:54 by Lisa Bar NP) Tubular adenoma of colon Primary insomnia GREGORIA (obstructive sleep apnea) Hyperlipidemia Cervical dysplasia Essential hypertension Nut allergy Environmental allergies Diverticulosis of large intestine Osteoarthritis of both knees Anxiety disorder Surgical History (Updated 09/14/22 @ 15:26 by Nakia Demarco RN) Hx of hysterectomy History of laparoscopic appendectomy Hx of total knee replacement Hx of colonoscopy Family History (Updated 09/14/22 @ 15:29 by Nakia Demarco RN) Father COPD (chronic obstructive pulmonary disease) Hyperlipidemia Hypertension Mother Hyperlipidemia Hypertension Stroke Paternal Grandmother Colon cancer Sister Hyperlipidemia Hypertension Brother Hyperlipidemia Social History (Updated 09/14/22 @ 15:28 by Nakia Demarco RN) Smoking/Tobacco Use Status: Never Smoking risk assessment performed?: Yes Alcohol Intake: current Alcohol Intake frequency: 0-2 drinks per day Drug use: Never Substance use type: does not use Do you feel safe at home: Yes Do you feel safe in your relationship?: Yes Time Spent with Patient Time Spent with Patient: 45-69 minutes Time was spent: preparing to see the patient(eg.review tests), obtaining and/or reviewing separately otained hiistory, ordering medications,tests, procedures, indepentently interpreting results and counseling the patient
[2024-09-21] MEDS: Lidocaine 5% Patch 2 PATCH TP (13:56)
--- NOTE | 2024-09-21 14:07 | PDOC.CMDIS ---
Date of service: 09/21/24 Time of Service: 14:07 LACE Index Scoring Tool Questions: Length of Stay (in days): 2 Was the patient admitted via the E.D.?: Yes E.D. Visits: 1 Answers: Total Score: 6 Risk of Readmission: Low Risk Care Management Discharge Plan Reason for Hospitalization: Nausea, vomiting Discharge Plan: Discharge home via private vehicle with family. Follow up with PCP and community providers. No new services are ordered before discharge. Outpatient PT is recommended. Patient/Family Education Needs: Review discharge instructions and plan to follow up after discharge. Discuss ask me three. Services Needed at Discharge: Physical Therapy (outpatient) SDOH Health Related Social Needs: Health related social needs risk of homeless Health related social needs details no needs Health related social needs details: no needs
== END 2024-09-21 14:33 | disposition home or self-care (01) | DRG 552 ==
LOC: ER 14:25 → MS 16:59
PROVIDERS: Admitting Provider Family Medicine; Emergency Provider Physician Assistant; Responsible Provider Nurse Practitioner Acute Care; Visit Provider Family Medicine
DX: I10 Essential (primary) hypertension; G43.909 Migraine, unspecified, not intractable, without status migrainosus; R11.2 Nausea with vomiting, unspecified; M54.50 Low back pain, unspecified; G47.33 Obstructive sleep apnea (adult) (pediatric); K57.30 Diverticulosis of large intestine without perforation or abscess without bleeding; F41.9 Anxiety disorder, unspecified; E78.5 Hyperlipidemia, unspecified; R42 Dizziness and giddiness; M47.816 Spondylosis without myelopathy or radiculopathy, lumbar region; Z59.811 Housing instability, housed, with risk of homelessness; R82.4 Acetonuria; Z79.899 Other long term (current) drug therapy; F51.01 Primary insomnia; E80.6 Other disorders of bilirubin metabolism; K59.00 Constipation, unspecified; R10.9 Unspecified abdominal pain; E86.0 Dehydration
CPT/HCPCS: 00123; 36415; 80053; 80307; 83690; 85652; 93005; 96361; 96365; 96375; 97110; 97140; 97161; 99285; 72110; 73502; 74177; 76705; 81003; 81015; 83036; 83735; 84484; 85025; 86140; 93010; 99223; 99233; 99238; J0131; J0780; J1885; J2270; J2405; J2470; J2765; J3490